=== PATIENT | female | born 1980 | race Hispanic/Latino ===

== ENCOUNTER 2022-10-15 06:59 | Day surgery (SDC) | payer BC ==
[2022-10-12 11:35] VITALS: BMI 37.4
[2022-10-15] MEDS ORDERED: EPINEPHrine 1 MG/ML AMP ONE (08:18)
[2022-10-15] MEDS ORDERED: Indocyanine Green 25 MG/10 ML VIAL ONE (08:18)
[2022-10-15] MEDS ORDERED: Bupivacaine 0.25% HCL 30 ML VIAL ONE (08:18)
[2022-10-15] MEDS ORDERED: fentaNYL 50 mcg/mL 1 mL Vial ONE ×2 (09:08→10:34)
[2022-10-15] MEDS ORDERED: Sodium Chloride 0.9% 100 ML ONE (09:15)
[2022-10-15] MEDS ORDERED: CEFAZOLIN 2 GM VIAL ONE (09:15)
[2022-10-15] MEDS ORDERED: Rocuronium Bromide 10 MG/ML (10ML VIAL) ONE (09:34)
[2022-10-15] MEDS ORDERED: Lidocaine 1% PF 5 ML VIAL ONE (09:34)
[2022-10-15] MEDS ORDERED: PROPOFOL 200 MG/20 ML VIAL ONE (09:34)
[2022-10-15] MEDS ORDERED: Ondansetron PF 4 MG/2 ML Vial ONE (10:30)
[2022-10-15] MEDS ORDERED: HYDROcodone/Acetaminophen 5/325 mg Tablet ONE (12:13)
== END 2022-10-15 13:00 | disposition home or self-care (01) ==
LOC: SDC 06:59
PROVIDERS: ATTEND Surgery
PROC: 0FT44ZZ Resection of Gallbladder, Percutaneous Endoscopic Approach (ICD-10-PCS; principal; 2022-10-15)
DX: K80.10 Calculus of gallbladder with chronic cholecystitis without obstruction (principal)
CPT/HCPCS: 88304; J0171; J2405; J2704; J3010; J3490; S0020